=== PATIENT | female | born 1975 | race Caucasian/White ===

== ENCOUNTER 2018-07-28 10:26 | Inpatient (IN) | END 2018-07-30 14:23 | disposition left against medical advice (07) | DRG 392 ==

== ENCOUNTER 2018-07-31 20:40 | Emergency (ER) | END 2018-07-31 23:25 | disposition home or self-care (01) ==

== ENCOUNTER 2018-11-09 01:58 | Emergency (ER) | payer OTHER ==
[~2018-11-09] VITALS: Ht 170.2 cm; Wt 116.0 kg
[2018-11-09 01:59] VITALS: Ht 170.2 cm; Wt 116.0 kg
[2018-11-09] MEDS ORDERED: SOD CHLORIDE 0.9% 1,000 ML IV STA (02:13)
[2018-11-09] MEDS ORDERED: ONDANSETRON 4 MG INJ IV STA (02:13)
[2018-11-09] MEDS ORDERED: KETOROLAC 30 MG INJ IV STA (02:13)
[2018-11-09] MEDS ORDERED: IBUP-1542 PO (03:48)
[2018-11-09] MEDS ORDERED: ONDA4TAB14 PO (03:48)
--- NOTE | 2018-11-09 04:13 | ERD ---
ER Documentation Chief Complaint Chief Complaint RUQ PAIN X 2 DAYS HPI Patient is a 43-year-old female with no medical problems who presents with abdominal pain. She describes it as a "burning pain" for the past 1.5 days. She has a history of stent placement in the past when she had elevated liver tests. She said the pain comes and goes. She has had no fevers. She has no vomiting or diarrhea. Upon review of old medical records this is the patient's third visit to the ER since July 2018. She does not currently have a primary doctor. ROS All systems reviewed and are negative except as per history of present illness. Medications Home Meds Active Scripts Ondansetron (Ondansetron Odt) 4 Mg Tab.rapdis, 4 MG PO Q6H PRN for NAUSEA AND/OR VOMITING, #10 TAB Prov:VINCENT JENKINS MD 11/09/18 Ibuprofen* (Motrin*) 600 Mg Tab, 600 MG PO Q6H PRN for PAIN AND OR ELEVATED TEMP, #30 TAB Prov:VINCENT JENKINS MD 11/09/18 Allergies Allergies: Coded Allergies: No Known Allergy (Unverified , 07/28/18) PMhx/Soc History of Surgery: Yes (cholecystectomy) Anesthesia Reaction: No Hx Neurological Disorder: No Hx Respiratory Disorders: Yes (asthma) Hx Cardiac Disorders: No Hx Psychiatric Problems: No Hx Miscellaneous Medical Probl: No Hx Alcohol Use: No Hx Substance Use: No Hx Tobacco Use: No Smoking Status: Never smoker FmHx Family History: No diabetes Physical Exam Vitals Vital Signs Date Temp Pulse Resp B/P (MAP) Pulse Ox O2 O2 Flow FiO2 Time Delivery Rate 11/09/18 98.4 109 18 178/106 100 01:59 (130) Physical Exam Const: No acute distress Head: Atraumatic Eyes: Normal Conjunctiva ENT: Normal External Ears, Nose and Mouth. Neck: Full range of motion. No meningismus. Resp: Clear to auscultation bilaterally Cardio: Regular rate and rhythm, no murmurs Abd: Soft, epigastric tenderness to palpation without rebound or guarding Skin: No petechiae or rashes Back: No midline or flank tenderness Ext: No cyanosis, or edema Neur: Awake and alert Psych: Normal Mood and Affect Result Diagram: 11/09/18 0242 11/09/18 0242 Results 24 hrs Laboratory Tests Test 11/09/18 02:42 White Blood Count 6.6 10^3/ul Red Blood Count 4.50 10^6/ul Hemoglobin 12.6 g/dl Hematocrit 38.8 % Mean Corpuscular Volume 86.2 fl Mean Corpuscular Hemoglobin 28.0 pg Mean Corpuscular Hemoglobin Concent 32.5 g/dl Red Cell Distribution Width 13.2 % Platelet Count 305 10^3/UL Mean Platelet Volume 9.0 fl Immature Granulocytes % 0.300 % Neutrophils % 51.8 % Lymphocytes % 37.0 % Monocytes % 7.6 % Eosinophils % 3.0 % Basophils % 0.3 % Nucleated Red Blood Cells % 0.0 /100WBC Immature Granulocytes # 0.020 10^3/ul Neutrophils # 3.4 10^3/ul Lymphocytes # 2.4 10^3/ul Monocytes # 0.5 10^3/ul Eosinophils # 0.2 10^3/ul Basophils # 0.0 10^3/ul Nucleated Red Blood Cells # 0.0 10^3/ul Urine Color YELLOW Urine Clarity SLIGHTLY CLOUDY Urine pH 5.0 Urine Specific [place] 1.023 Urine Ketones NEGATIVE mg/dL Urine Nitrite NEGATIVE mg/dL Urine Bilirubin NEGATIVE mg/dL Urine Urobilinogen NEGATIVE mg/dL Urine Leukocyte Esterase TRACE Bernardo/ul Urine Microscopic RBC 0 /HPF Urine Microscopic WBC 3 /HPF Urine Squamous Epithelial Cells FEW /HPF Urine Mucus FEW /HPF Urine Hemoglobin NEGATIVE mg/dL Urine Glucose NEGATIVE mg/dL Urine Total Protein 1+ mg/dl Urine Test NEGATIVE Sodium Level 142 mmol/L Potassium Level 4.1 mmol/L Chloride Level 101 mmol/L Carbon Dioxide Level 30 mmol/L Anion Gap 11 Blood Urea Nitrogen 14 mg/dl Creatinine 0.79 mg/dl Est Glomerular Filtrat Rate mL/min > 60 mL/min Glucose Level 100 mg/dl Calcium Level 9.6 mg/dl Total Bilirubin 0.0 mg/dl Direct Bilirubin 0.00 mg/dl Indirect Bilirubin 0.0 mg/dl Aspartate Amino Transf (AST/SGOT) 27 IU/L Alanine Aminotransferase (ALT/SGPT) 22 IU/L Alkaline Phosphatase 62 IU/L Total Protein 7.6 g/dl Albumin 4.1 g/dl Globulin 3.50 g/dl Albumin/Globulin Ratio 1.17 Lipase 112 U/L Current Medications Medications Dose Sig/[place] Start Time Status Last (Trade) Ordered Route PRN Stop Time Admin Dose Reason Admin Sodium 1,000 ml @ Q1H STAT 11/09/18 DC 11/09/18 Chloride 1,000 mls/hr IV 02:13 02:46 11/09/18 03:12 Ondansetron 4 mg ONCE STAT 11/09/18 DC 11/09/18 HCl (Zofran IV 02:13 02:46 Inj) 11/09/18 02:14 Ketorolac 30 mg ONCE STAT 11/09/18 DC 11/09/18 Tromethamine IV 02:13 02:13 (Toradol) 11/09/18 02:14 Procedures/MDM Patient is a 43-year-old female who presents with epigastric pain. LFTs and lipase were normal. White blood cell count is normal. She has had her gallbladder removed in the past. At this point I doubt cholecystitis, pancreatitis, appendicitis, or bowel obstruction. I believe outpatient management is appropriate at this time. The patient can follow-up with the local clinics within 24-48 hours for reevaluation as she does not currently have a primary doctor. She can return sooner for any worsening symptoms. Departure Diagnosis: Primary Impression: Abdominal pain Abdominal location: epigastric Qualified Codes: R10.13 - Epigastric pain Condition: Fair Patient Instructions: Abdominal Pain Additional Instructions: Call your primary care doctor TOMORROW for an appointment during the next 1-2 days.See the doctor sooner or return here if your condition worsens before your appointment time. VINCENT JENKINS MD Nov 09, 2018 04:13
[2018-11-09 04:17] VITALS: BP 122/84; PULSE 86; RESP 19
== END 2018-11-09 04:18 | disposition home or self-care (01) ==
LOC: E/R 01:58
DX: R10.13 Epigastric pain (principal); J45.909 Unspecified asthma, uncomplicated
CPT/HCPCS: 36415; 80053; 81001; 83690; 84703; 85025; 96374; 96375; J1885; J2405; J7030; Z7502

== ENCOUNTER 2019-04-17 20:09 | Emergency (ER) | payer OTHER ==
[~2019-04-17] VITALS: Ht 170.2 cm; Wt 117.0 kg
[~2019-04-17 20:09] MED LIST: IBUP-1542 PO; ONDA4TAB14 PO
[2019-04-17 20:26] VITALS: Ht 170.2 cm; Wt 117.0 kg
[2019-04-17] MEDS ORDERED: ONDANSETRON 4 MG INJ IV STA (22:00)
[2019-04-17] MEDS ORDERED: SOD CHLORIDE 0.9% 500 ML IV STA (22:00)
[2019-04-17] MEDS ORDERED: morphine 4 MG/ML VIAL IV STA (22:00)
--- NOTE | 2019-04-18 02:08 | ERD ---
ER Documentation Chief Complaint Chief Complaint abd pain/vomiting x 3 days HPI This is a very pleasant 44 female abdominal pain vomiting for the past 3 days. History of common bile duct stenting in the past. Pain is mild to moderate intensity epigastric in location with no exacerbating alleviating factors. She does state tends to be worse after food on upon further questioning. Vomiting nonbilious nonbloody 3-5 episodes per day. Denies any other current issues. ROS All systems reviewed and are negative except as per history of present illness. Medications Home Meds Discontinued Scripts Ondansetron (Ondansetron Odt) 4 Mg Tab.rapdis, 4 MG PO Q6H PRN for NAUSEA AND/OR VOMITING, #10 TAB Prov:VINCENT JENKINS MD 11/09/18 Ibuprofen* (Motrin*) 600 Mg Tab, 600 MG PO Q6H PRN for PAIN AND OR ELEVATED TEMP, #30 TAB Prov:VINCENT JENKINS MD 11/09/18 Allergies Allergies: Coded Allergies: No Known Allergy (Unverified , 04/17/19) PMhx/Soc History of Surgery: Yes (cholecystectomy) Anesthesia Reaction: No Hx Neurological Disorder: No Hx Respiratory Disorders: Yes (asthma) Hx Cardiac Disorders: No Hx Psychiatric Problems: No Hx Miscellaneous Medical Probl: No Hx Alcohol Use: No Hx Substance Use: No Hx Tobacco Use: No Smoking Status: Never smoker Physical Exam Vitals Vital Signs Date Temp Pulse Resp B/P (MAP) Pulse Ox O2 O2 Flow FiO2 Time Delivery Rate 04/17/19 98.0 99 18 162/93 99 20:26 (116) Physical Exam Const: No acute distress Head: Atraumatic Eyes: Normal Conjunctiva ENT: Normal External Ears, Nose and Mouth. Neck: Full range of motion. No meningismus. Resp: Clear to auscultation bilaterally Cardio: Regular rate and rhythm, no murmurs Abd: Soft, non tender, non distended. Normal bowel sounds Skin: No petechiae or rashes Back: No midline or flank tenderness Ext: No cyanosis, or edema Neur: Awake and alert Psych: Normal Mood and Affect Result Diagram: 04/17/19220704/17/192207 Results 24 hrs Laboratory Tests Test 04/17/19 22:05 04/17/19 22:06 04/17/19 22:08 POC Beta HCG, Qualitative NEGATIVE Bedside Urine pH (LAB) 6.0 Bedside Urine Protein (LAB) 1+ Bedside Urine Glucose (UA) Negative Bedside Urine Ketones (LAB) Negative Bedside Urine Blood Trace-intact Bedside Urine Nitrite (LAB) Negative Bedside Urine Leukocyte Esterase Negative (L White Blood Count 10.8 10^3/ul Red Blood Count 5.04 10^6/ul Hemoglobin 14.1 g/dl Hematocrit 43.1 % Mean Corpuscular Volume 85.5 fl Mean Corpuscular Hemoglobin 28.0 pg Mean Corpuscular 32.7 g/dl Hemoglobin Concent Red Cell Distribution Width 13.1 % Platelet Count 349 10^3/UL Mean Platelet Volume 9.3 fl Immature Granulocytes % 0.400 % Neutrophils % 59.6 % Lymphocytes % 29.8 % Monocytes % 7.1 % Eosinophils % 2.8 % Basophils % 0.3 % Nucleated Red Blood Cells % 0.0 /100WBC Immature Granulocytes # 0.040 10^3/ul Neutrophils # 6.4 10^3/ul Lymphocytes # 3.2 10^3/ul Monocytes # 0.8 10^3/ul Eosinophils # 0.3 10^3/ul Basophils # 0.0 10^3/ul Nucleated Red Blood Cells # 0.0 10^3/ul Prothrombin Time 11.7 Sec Prothrombin Time Ratio 0.9 INR International Normalized Ratio 0.85 Activated Partial Thromboplast 25.3 Sec Time Urine Color YELLOW Urine Clarity CLEAR Urine pH 6.0 Urine Specific [place] 1.011 Urine Ketones NEGATIVE mg/dL Urine Nitrite NEGATIVE mg/dL Urine Bilirubin NEGATIVE mg/dL Urine Urobilinogen NEGATIVE mg/dL Urine Leukocyte Esterase NEGATIVE Bernardo/ul Urine Microscopic RBC 0 /HPF Urine Microscopic WBC 1 /HPF Urine Squamous Epithelial Cells FEW /HPF Urine Mucus FEW /HPF Urine Hemoglobin NEGATIVE mg/dL Urine Glucose NEGATIVE mg/dL Urine Total Protein 1+ mg/dl Sodium Level 141 mmol/L Potassium Level 4.1 mmol/L Chloride Level 105 mmol/L Carbon Dioxide Level 25 mmol/L Anion Gap 11 Blood Urea Nitrogen 7 mg/dl Creatinine 0.55 mg/dl Est Glomerular Filtrat Rate mL/min > 60 mL/min Glucose Level 99 mg/dl Calcium Level 9.6 mg/dl Total Bilirubin 0.2 mg/dl Direct Bilirubin 0.00 mg/dl Indirect Bilirubin 0.2 mg/dl Aspartate Amino Transf (AST/SGOT) 28 IU/L Alanine 16 IU/L Aminotransferase (ALT/SGPT) Alkaline Phosphatase 67 IU/L Total Protein 8.0 g/dl Albumin 4.2 g/dl Globulin 3.80 g/dl Albumin/Globulin Ratio 1.10 Lipase 96 U/L Current Medications Medications Dose Sig/[place] Start Time Status Last (Trade) Ordered Route PRN Stop Time Admin Dose Reason Admin Sodium 500 ml @ Q1H STAT 04/17/19 DC 04/17/19 Chloride 500 mls/hr IV 22:00 04/17/19 22:04 22:59 Morphine 4 mg ONCE STAT 04/17/19 DC 04/17/19 Sulfate IV 22:00 04/17/19 22:04 (morphine) 22:01 Ondansetron 4 mg ONCE STAT 04/17/19 DC 04/17/19 HCl (Zofran IV 22:00 04/17/19 22:04 Inj) 22:01 Procedures/MDM Medical decision making: Patient's gastrointestinal symptoms have stabilized while in the department. No evidence of severe dehydration, sepsis, or surgical abdomen. Extensive discussion with family and patient that occult disease cannot be ruled out. 8 hour recheck for repeat abdominal exam is planned. Patient has also been advised to follow-up with GI specialist to see the patient in the past. Departure Diagnosis: Primary Impression: Abdominal pain Abdominal location: unspecified location Qualified Codes: R10.9 - Unspecified abdominal pain Condition: Stable HAYDEE GUZMAN Apr 18, 2019 02:08
[2019-04-18] MEDS ORDERED: RANI150T35 PO (02:09)
[2019-04-18] MEDS ORDERED: ONDA4TAB14 PO (02:09)
[2019-04-18] MEDS ORDERED: LIDOCAINE/MYLANTA 40 ML BTL PO ONE (02:30)
[2019-04-18 03:19] VITALS: BP 139/84; PULSE 78; RESP 17
== END 2019-04-18 03:10 | disposition home or self-care (01) ==
LOC: E/R 20:09
DX: R10.13 Epigastric pain (principal); R11.10 Vomiting, unspecified
CPT/HCPCS: 36415; 71045; 74176; 80053; 81001; 81025; 83690; 85025; 85610; 85730; 96374; 96375; J2270; J2405; J7040; Z7502; Z7610; 81003

== ENCOUNTER 2019-06-28 18:45 | Emergency (ER) | payer SELFPAY ==
[~2019-06-28] VITALS: Ht 170.2 cm; Wt 114.6 kg
[~2019-06-28 18:45] MED LIST changes: -IBUP-1542 PO; +NITR-58 PO; +PANT40TA3 PO; +RANI-535 PO
[2019-06-28 18:58] VITALS: Ht 170.2 cm; Wt 114.6 kg
[2019-06-28 21:05] VITALS: BP 132/100; PULSE 75; RESP 16
== END 2019-06-28 21:05 | disposition home or self-care (01) ==
LOC: E/R 18:45
DX: N39.0 Urinary tract infection, site not specified (principal); J45.909 Unspecified asthma, uncomplicated
CPT/HCPCS: 36415; 76705; 80053; 81001; 83690; 84703; 85025